=== PATIENT | male | born 1995 | race Caucasian/White ===

== ENCOUNTER 2017-06-22 16:25 | Outpatient (RCR) | payer OTHER | END 2017-08-05 10:35 | disposition home or self-care (01) | LOC: WSOH 16:25 | DX: S61.217A Laceration without foreign body of left little finger without damage to nail, initial encounter (principal); W23.1XXA Caught, crushed, jammed, or pinched between stationary objects, initial encounter; Y99.0 Civilian activity done for income or pay ==

== ENCOUNTER 2017-08-02 14:33 | Outpatient (RCR) | payer OTHER | END 2017-08-05 10:35 | disposition home or self-care (01) | LOC: WSOH 14:33 | DX: S61.217D Laceration without foreign body of left little finger without damage to nail, subsequent encounter (principal); S62.667D Nondisplaced fracture of distal phalanx of left little finger, subsequent encounter for fracture with routine healing; W23.1XXD Caught, crushed, jammed, or pinched between stationary objects, subsequent encounter; Y99.0 Civilian activity done for income or pay ==